=== PATIENT | male | born 1955 | race Caucasian/White ===

== ENCOUNTER 2022-11-21 12:41 | Day surgery (SDC) | payer MEDICARE, BC ==
--- NOTE | 2022-11-19 11:12 | HP ---
DATE: 11/21/2022 HISTORY OF PRESENT ILLNESS: Patient is a 67 year-old male who presents with chronic left inguinal hernia. It is quite small. He complains of working at [employer] and having this bulge out and having some pain at the site. He has been able to push this in. He has been dealing with this for about a few weeks now. PAST MEDICAL HISTORY: Diabetes, hypertension, hyperlipidemia, benign prostatic hypertrophy. CURRENT MEDICATIONS: Viagra, tamsulosin, potassium, metoprolol, metformin, hydrochlorothiazide, amlodipine, gemfibrozil. ALLERGIES: DEMEROL, LISINOPRIL. PAST SURGERIES: Appendectomy. SOCIAL HISTORY: Negative. FAMILY HISTORY: None reported. REVIEW OF SYSTEMS: CONSTITUTIONAL: Denies fever or chills. CHEST: Denies shortness of breath. CVS: Denies chest pain. ABDOMEN: Reports left inguinal hernia pain. PHYSICAL EXAMINATION: GENERAL: No acute distress. CHEST: Nonlabored. No shortness of breath. CVS: Regular rate and rhythm. ABDOMEN: Small left inguinal hernia. IMPRESSION: 1. SMALL LEFT INGUINAL HERNIA. PLAN: Left inguinal hernia repair with possible mesh with Dr. Mark. An. This report was dictated for Dr. An by Tameka Crandall NP.
[2022-11-21] MEDS ORDERED: EXPAREL 133 MG/10 ML VIAL IJ ONE (12:42)
[2022-11-21] MEDS ORDERED: Lactated Ringers 1,000 ML IV ONE ×2 (13:26→15:42)
[2022-11-21] MEDS ORDERED: CEFAZOLIN 2 GM-D5W BAG** 2 GM/50 ML ML IV ONE (13:26)
[2022-11-21 13:31] VITALS: RESP 18
[2022-11-21] MEDS: CEFAZOLIN 2 GM-D5W BAG** 2 GM/50 ML ML IV SCH (13:31)
[2022-11-21] MEDS: Lactated Ringers 1,000 ML IV SCH (13:31)
[2022-11-21 14:00] LABS: ANION GAP 12.2 MEQ/L (5-15); BLOOD UREA NITROGEN 21 mg/dL (9-20); CHLORIDE 109 mmol/L (98-107); Calcium 8.7 mg/dL (8.4-10.2); Carbon Dioxide 25 mmol/L (22-30); Creatinine 1 0.82 mg/dL (0.66-1.25); EST GLOMERULAR FILTRATION RATE > 60.0 ML/MIN; Glucose 83 mg/dL (74-106); Potassium 3.5 mmol/L (3.5-5.1); SODIUM 142 mmol/L (137-145)
[2022-11-21] MEDS ORDERED: Sensorcaine 0.25% 10 ML ONE ×2 (14:47→15:41)
[2022-11-21] MEDS ORDERED: OFIRMEV 100 ML IV ONE (15:41)
[2022-11-21] MEDS ORDERED: Pre-Attached Lta Kit TP ONE (15:42)
[2022-11-21] MEDS ORDERED: SUBLIMAZE 100 MCG/2 ML ONE ×2 (15:42→17:26)
[2022-11-21] MEDS ORDERED: DIPRIVAN 200 MG/20 ML IV ONE (15:42)
[2022-11-21] MEDS ORDERED: Zemuron 100 MG/10 ML ONE (15:43)
[2022-11-21] MEDS ORDERED: Xylocaine-Mpf 2% 5 Ml Vial ONE (15:43)
[2022-11-21] MEDS ORDERED: Versed 2 MG/2 ML Injection ONE (15:45)
[2022-11-21] MEDS ORDERED: Decadron 4 MG INJ ONE (16:01)
[2022-11-21] MEDS ORDERED: Zofran 4 MG/2 ML VIAL ONE ×2 (16:01→17:43)
[2022-11-21] MEDS ORDERED: Ephedrine Sulfate 50 MG/ML ONE (16:05)
[2022-11-21] MEDS ORDERED: ATROPINE SULFATE 1MG ONE (16:27)
[2022-11-21] MEDS ORDERED: DEXMEDETOMIDINE 80 MCG/20ML-NS IV ONE (16:39)
[2022-11-21] MEDS ORDERED: BRIDION 200MG/2ML IV ONE (16:57)
[2022-11-21] MEDS ORDERED: Hydromorphone 1 mg/ml Injection ONE (17:21)
[2022-11-21 18:07] VITALS: TEMP 97.8
[2022-11-21 18:23] VITALS: BP 182/93; PULSE 73; O2SAT 96
--- NOTE | 2022-11-22 11:09 | OP ---
SURGERY DATE: 11/21/2022 SURGERY TIME: 1538 PREOPERATIVE DIAGNOSIS: 1. SYMPTOMATIC LEFT INGUINAL HERNIA. POSTOPERATIVE DIAGNOSIS: 1. LEFT INGUINAL HERNIA, INDIRECT. PROCEDURE: 1. Open left inguinal herniorrhaphy with mesh. SURGEON: Jonathon An M.D. ANESTHESIA: General. COMPLICATIONS: None. CONDITION: Stable. OPERATIVE PROCEDURE: Patient taken to surgery. General anesthetic. Routine prep and drape. Time-out performed. The left side had been marked. 0.25% Marcaine. Curvilinear incision. External oblique opened. Cord skeletonized. A 4" indirect hernia sac highly ligated. The cone of the cord was removed and tied off with 2-0 Vicryl. The floor was satisfactory, but it still was repaired with a 1 X 4 mesh trimmed to size. Secured in deep fashion. Internal ring was 1 clamp tight. The repair looked excellent. Cord laid back in natural position. Ilioinguinal nerve laid back in nature position. External oblique closed with 0 Vicryl. Roman approximated with 2-0 Vicryl. Skin closed with 4-0 Vicryl. Steri-strips applied. Sterile dressing applied. Patient tolerated the procedure satisfactory.
== END 2022-11-21 18:30 | disposition home or self-care (01) ==
LOC: SDC 12:41
PROVIDERS: ATTEND Surgery
DX: K40.90 Unilateral inguinal hernia, without obstruction or gangrene, not specified as recurrent (principal); E11.9 Type 2 diabetes mellitus without complications; I10 Essential (primary) hypertension
CPT/HCPCS: 36415; 80048; 82947; J0461; J0690; J1100; J1170; J2250; J2405; J2704; J3010